=== PATIENT | male | born 1995 | race Caucasian/White ===

== ENCOUNTER 2025-02-10 14:52 | Emergency (ER) | payer OTHER ==
[~2025-02-10] VITALS: Ht 180.3 cm; Wt 76.0 kg
[2025-02-10 14:55] VITALS: BP 137/76; TEMP 97.2; O2SAT 98
== END 2025-02-10 15:38 | disposition home or self-care (01) ==
LOC: M ED 14:52
DX: T16.1XXA Foreign body in right ear, initial encounter (principal); Y92.9 Unspecified place or not applicable